=== PATIENT | male | born 1950 | race Caucasian/White ===

== ENCOUNTER 2016-08-22 16:25 | Emergency (ER) ==
[2016-08-22 17:01] LABS: MANUAL DIFF NEEDED? NO; URINE CULTURE NEEDED? NO; URINE MICRO REVIEW NEEDED? NO; URINE SOURCE CLEAN CATCH
--- NOTE | 2016-08-22 17:03 | PROVIDER DOCUMENTATION ---
HPI-General Adult - General Source: patient, family - History of Present Illness -Gen Adult Nature of Presenting Problems: Pt is 65 y/o M presents to the ED with request for psych evaluation from doctor. Pt's family states Pt was admitted to [place] for psych and was d/c after three days. Pt's family states Pt should have not been d/c. Pt's family states Pt has become worse. Location of Pain/Injury: reports: none Pain Radiation: reports: no radiation Quality of Pain: reports: none Onset/Duration: reports: unsure Timing: reports: still present Context/Activities at Onset: reports: light activity Modifying Factors: improves with: nothing Associated Symptoms: reports: denies symptoms Similar Symptoms Previously?: Yes Recently seen or treated by another doctor?: No <Lita Miranda - Last Filed: 08/22/16 16:58> <Jose Nagy - Last Filed: 08/22/16 21:21> - General Chief Complaint: Psych Stated Complaint: PSYCH Time Seen by Provider: 08/22/16 16:32 Allergies/Adverse Reactions: Patient Allergies Allergy/AdvReac Type Severity Reaction Status Date / Time No Known Allergies Allergy Verified 08/22/16 19:31 Home Medications: Home Medication List Medication Instructions Recorded Confirmed Last Taken Type Acetaminophen [Tylenol Extra 500 mg PO TID PRN PRN 08/22/16 08/22/16 Unknown History Strength] Aspirin EC 81 mg PO QAM 08/22/16 08/22/16 08/22/16 07:00 History Diphenhydramine [Benadryl] 25 mg PO Q4H PRN PRN 08/22/16 08/22/16 Unknown History Fluoxetine HCl [Prozac] 20 mg PO QAM 08/22/16 08/22/16 08/22/16 07:00 History Guaifenesin/D-Methorphan Hb/PE 10 ml PO Q4H PRN PRN 08/22/16 08/22/16 Unknown History [Tussin Cf Cough & Cold Liquid] Hydrocodone/Acetaminophen [[place] 1 each PO Q4H PRN PRN 08/22/16 08/22/16 Unknown History 10-325 Tablet] Loperamide HCl [Loperamide] 4 mg PO PRN PRN 08/22/16 08/22/16 Unknown History Lorazepam [Ativan] 0.5 mg PO DAILY PRN PRN 08/22/16 08/22/16 08/21/16 History Lorazepam [Ativan] 0.5 mg PO TID 08/22/16 08/22/16 08/22/16 07:00 History Magnesium Hydroxide [Milk of 30 ml PO DAILY PRN 08/22/16 08/22/16 Unknown History Magnesia] Magnesium Hydroxide/Al Hydrox 10 ml PO Q2H PRN PRN 08/22/16 08/22/16 Unknown History [Mylanta Liquid] Melatonin 1 mg PO QHS 08/22/16 08/22/16 08/21/16 21:00 History Ondansetron HCl [Zofran] 4 mg PO Q4H PRN PRN 08/22/16 08/22/16 Unknown History Ondansetron HCl [Zofran] 4 mg PO Q4H PRN PRN 08/22/16 08/22/16 Unknown History Pantoprazole Sodium [Protonix] 40 mg PO QAM 08/22/16 08/22/16 08/22/16 06:30 History Pseudoephedrine HCl 60 mg PO Q4H PRN PRN 08/22/16 08/22/16 Unknown History Quetiapine Fumarate [Seroquel] 200 mg PO QHS 08/22/16 08/22/16 08/21/16 21:00 History Tamsulosin [Flomax] 0.4 mg PO QAM 08/22/16 08/22/16 08/22/16 07:00 History Triprolidine/Pseudoephedrine 1 each PO Q4H PRN PRN 08/22/16 08/22/16 Unknown History [Aprodine Tablet] Vit C/Vit E Acetate/Lutein/Min 1 each PO QAM 08/22/16 08/22/16 08/22/16 07:00 History [Ocuvite Lutein Capsule] Vitamin B Complex 1 each PO HS 08/22/16 08/22/16 08/21/16 21:00 History Review of Systems - Adult - REVIEW OF SYSTEMS - ADULT Constitutional: reports: no symptoms reported Eyes: reports: no symptoms reported Ears, Nose, Mouth & Throat: reports: no symptoms reported Cardiovascular: reports: irregular heart rate (tachy). denies: chest pain, heart murmur Respiratory: reports: no symptoms reported Gastrointestinal: reports: no symptoms reported Genitourinary: reports: no symptoms reported Musculoskeletal: reports: no symptoms reported Integumentary: reports: no symptoms reported Neurological: reports: no symptoms reported Psychiatric: denies: anxiety, panic attacks, suicidal thoughts Endocrine: reports: no symptoms reported Hematologic/Lymphatic: reports: no symptoms reported Allergic/Immunologic: reports: no symptoms reported All Other Systems: Reviewed and Negative <Lita Miranda - Last Filed: 08/22/16 16:58> Past History - Adult - PAST MEDICAL HISTORY-ADULT Review of Records: reports: Nursing Assessment Review, Medications Reviewed, Social history reviewed & non-contributory. Major Childhood Illnesses: reports: denies history Cardiovascular: reports: denies history Respiratory: reports: denies history Gastrointestinal: reports: denies history Obstetrical/Gynecological: reports: denies history Genitourinary: reports: denies history Musculoskeletal: reports: denies history Neurological: reports: denies history Endocrine/Immune: reports: denies history Other Conditions: reports: denies history - IMMUNIZATION STATUS Childhood Immunizations: See Nurse Assessment Flu Vaccine: See Nurse Assessment - FAMILY HISTORY Family History: reviewed, not pertinent - SOCIAL HISTORY Smoking: denies Substance Use: denies Living Situation: family <RubenLita - Last Filed: 08/22/16 16:58> Physical Exam-General - PHYSICAL EXAM-ADULT Initial Vital Signs Reviewed: Yes - CONSTITUTIONAL General Appearance: appears well, no apparent distress, anxious - EYES Eyes: PERRL/EOMI, pink conjunctivae, fundi clear, no AV nicking - HEAD, EARS, NOSE, MOUTH & THROAT HENMT: normocephalic/atraumatic, moist mucous membranes, normal ENT inspection, TMs normal, pharynx normal - NECK Neck: non-tender, full range of motion, supple, normal inspection - RESPIRATORY Respiratory: chest non-tender, lungs clear, normal breath sounds, no pleuratic chest pain, no respiratory distress, no accessory muscle use - CARDIOVASCULAR Cardiovascular: normal peripheral pulses, no edema, no gallop, no JVD, no murmur , tachycardia - GASTROINTESTINAL (ABDOMEN) Abdominal Exam: normal bowel sounds, non tender, soft, no organomegaly, no pulsatile mass - LYMPHATIC Lymphatic: no adenopathy - MUSCULOSKELETAL Back Exam: normal inspection, no CVA tenderness, no vertebral tenderness Extremity: normal range of motion, non-tender, normal gait, normal inspection, no pedal edema, no calf tenderness, normal capillary refill, pelvis stable - SKIN Integumentary: normal color, normal turgor, warm/dry - NEUROLOGIC Neurologic: grossly normal - PSYCHIATRIC Psych/Mental Status: oriented x 3, anxious <Trina Mirandaomi - Last Filed: 08/22/16 16:58> Progress - PLAN OF CARE/RESULTS Progress/Plan/Lab Results: Pt. was accepted by Dr. Calvo at [facility]. Discussed results and plan of care with patient and family and both agree with plan and verbalizes understanding. Vital Signs Temp Pulse Resp BP Pulse Ox 08/22/16 16:35 98.2 F 105 H 18 128/95 100 No Known Allergies Allergy (Verified 08/22/16 19:31) Acetaminophen [Tylenol Extra Strength] 500 mg PO TID PRN PRN 08/22/16 Aspirin EC 81 mg PO QAM 08/22/16 Diphenhydramine [Benadryl] 25 mg PO Q4H PRN PRN 08/22/16 Fluoxetine HCl [Prozac] 20 mg PO QAM 08/22/16 Guaifenesin/D-Methorphan Hb/PE [[place]ussin Cf Cough & Cold Liquid] 10 ml PO Q4H PRN PRN 08/22/16 Hydrocodone/Acetaminophen [[place] 10-325 Tablet] 1 each PO Q4H PRN PRN 08/22/16 Loperamide HCl [Loperamide] 4 mg PO PRN PRN 08/22/16 Lorazepam [Ativan] 0.5 mg PO DAILY PRN PRN 08/22/16 Lorazepam [Ativan] 0.5 mg PO TID 08/22/16 Magnesium Hydroxide [Milk of Magnesia] 30 ml PO DAILY PRN 08/22/16 Magnesium Hydroxide/Al Hydrox [Mylanta Liquid] 10 ml PO Q2H PRN PRN 08/22/16 Melatonin 1 mg PO QHS 08/22/16 Ondansetron HCl [Zofran] 4 mg PO Q4H PRN PRN 08/22/16 Ondansetron HCl [Zofran] 4 mg PO Q4H PRN PRN 08/22/16 Pantoprazole Sodium [Protonix] 40 mg PO QAM 08/22/16 Pseudoephedrine HCl 60 mg PO Q4H PRN PRN 08/22/16 Quetiapine Fumarate [Seroquel] 200 mg PO QHS 08/22/16 Tamsulosin [Flomax] 0.4 mg PO QAM 08/22/16 Triprolidine/Pseudoephedrine [Aprodine Tablet] 1 each PO Q4H PRN PRN 08/22/16 Vit C/Vit E Acetate/Lutein/Min [Ocuvite Lutein Capsule] 1 each PO QAM 08/22/16 Vitamin B Complex 1 each PO HS 08/22/16 I&O 08/21/16 08/22/16 08/23/16 06:59 06:59 06:59 Output Total 40 Balance -40 Laboratory 08/22/16 08/22/16 08/22/16 16:53 16:53 16:53 WBC RBC Hgb Hct MCV MCH MCHC RDW Std Deviation Plt Count MPV Immature Gran % (Auto) Neut % (Auto) Lymph % (Auto) [place] % (Auto) Eos % (Auto) Baso % (Auto) Immature Gran # (Auto) Neut # (Auto) Lymph # (Auto) [place] # (Auto) Eos # (Auto) Baso # (Auto) Sodium Potassium Chloride Carbon Dioxide Anion Gap BUN Creatinine Estimated GFR/1.73 m2 BUN/Creatinine Ratio Glucose Calculated Osmolality Calcium Magnesium Total Bilirubin AST ALT Alkaline Phosphatase Total Protein Albumin Globulin Albumin/Globulin Ratio Vitamin B12 Folate TSH Free T4 Urine Source CLEAN CATCH Urine Color YELLOW Urine Turbidity CLEAR Urine pH 7.5 Ur Specific [place] 1.028 Urine Protein TRACE A Ur Glucose (Stick) NEGATIVE Ur Ketones (Stick) 10 A Urine Blood NEGATIVE Urine Nitrite NEGATIVE Urine Bilirubin NEGATIVE Urobilinogen Dipstick 8 A Urine Leukocytes NEGATIVE Urine WBC (Auto) <10 Urine RBC (Auto) <10 U Epithel Cells (Auto) <10 Urine Bacteria (Auto) NEGATIVE Urine Opiates Screen NONE DETECTED Ur Oxycodone Screen NONE DETECTED Ur Methadone, Qual NONE DETECTED Ur Barbiturates Screen NONE DETECTED Ur Phencyclidine Scrn NONE DETECTED Ur Amphetamines Screen NONE DETECTED U Benzodiazepines Scrn NONE DETECTED Urine Cocaine Screen NONE DETECTED U Cannabinoids Screen NONE DETECTED RPR NON-REACTIVE 08/22/16 08/22/16 08/22/16 16:53 16:53 16:53 WBC RBC Hgb Hct MCV MCH MCHC RDW Std Deviation Plt Count MPV Immature Gran % (Auto) Neut % (Auto) Lymph % (Auto) [place] % (Auto) Eos % (Auto) Baso % (Auto) Immature Gran # (Auto) Neut # (Auto) Lymph # (Auto) [place] # (Auto) Eos # (Auto) Baso # (Auto) Sodium 141 Potassium 3.7 Chloride 106 Carbon Dioxide 19 L Anion Gap 16 BUN 18 Creatinine 0.9 Estimated GFR/1.73 m2 > 60 BUN/Creatinine Ratio 20 Glucose 89 Calculated Osmolality 283 Calcium 9.5 Magnesium Total Bilirubin 1.62 H AST 18 ALT 21 Alkaline Phosphatase 84 Total Protein 7.6 Albumin 4.3 Globulin 3.3 Albumin/Globulin Ratio 1.3 Vitamin B12 483 Folate 21.3 TSH 2.82 Free T4 1.44 Urine Source Urine Color Urine Turbidity Urine pH Ur Specific [place] Urine Protein Ur Glucose (Stick) Ur Ketones (Stick) Urine Blood Urine Nitrite Urine Bilirubin Urobilinogen Dipstick Urine Leukocytes Urine WBC (Auto) Urine RBC (Auto) U Epithel Cells (Auto) Urine Bacteria (Auto) Urine Opiates Screen Ur Oxycodone Screen Ur Methadone, Qual Ur Barbiturates Screen Ur Phencyclidine Scrn Ur Amphetamines Screen U Benzodiazepines Scrn Urine Cocaine Screen U Cannabinoids Screen RPR 08/22/16 08/22/16 16:53 16:53 WBC 11.30 H RBC 5.03 Hgb 16.3 Hct 46.5 MCV 92.4 MCH 32.4 H MCHC 35.1 RDW Std Deviation 14.1 Plt Count 277 MPV 8.5 Immature Gran % (Auto) 0.6 H Neut % (Auto) 70.6 Lymph % (Auto) 16.9 L [place] % (Auto) 11.8 H Eos % (Auto) 0.0 Baso % (Auto) 0.1 Immature Gran # (Auto) 0.07 H Neut # (Auto) 7.98 H Lymph # (Auto) 1.91 [place] # (Auto) 1.33 H Eos # (Auto) 0.00 Baso # (Auto) 0.01 Sodium Potassium Chloride Carbon Dioxide Anion Gap BUN Creatinine Estimated GFR/1.73 m2 BUN/Creatinine Ratio Glucose Calculated Osmolality Calcium Magnesium 1.9 Total Bilirubin AST ALT Alkaline Phosphatase Total Protein Albumin Globulin Albumin/Globulin Ratio Vitamin B12 Folate TSH Free T4 Urine Source Urine Color Urine Turbidity Urine pH Ur Specific [place] Urine Protein Ur Glucose (Stick) Ur Ketones (Stick) Urine Blood Urine Nitrite Urine Bilirubin Urobilinogen Dipstick Urine Leukocytes Urine WBC (Auto) Urine RBC (Auto) U Epithel Cells (Auto) Urine Bacteria (Auto) Urine Opiates Screen Ur Oxycodone Screen Ur Methadone, Qual Ur Barbiturates Screen Ur Phencyclidine Scrn Ur Amphetamines Screen U Benzodiazepines Scrn Urine Cocaine Screen U Cannabinoids Screen RPR Orders Category Date Time Status CHEST-1 VIEW [RAD] Stat Exams 08/22/16 16:33 Taken HEAD W/O CONTRAST [CT] Stat Exams 08/22/16 16:33 Draft CBC WITH ELECTRONIC DIFF [HEME] Stat Lab 08/22/16 16:53 Completed COMPREHENSIVE METABOLIC PANEL [CHEM] Stat Lab 08/22/16 16:53 Completed FOLATE Stat Lab 08/22/16 16:53 Completed FREE T4 Stat Lab 08/22/16 16:53 Completed MAGNESIUM [CHEM] Stat Lab 08/22/16 16:53 Completed RPR [SERO] Stat Lab 08/22/16 16:53 Completed TSH Stat Lab 08/22/16 16:53 Completed URINALYSIS W/POSS RFLX CULT [URINALYSIS] Stat Lab 08/22/16 16:53 Completed URINE DRUG SCREEN Stat Lab 08/22/16 16:53 Completed VITAMIN B12 Stat Lab 08/22/16 16:53 Completed EKG [EKG] Stat Ther 08/22/16 16:33 Ordered Laboratory Tests 08/22/16 08/22/16 08/22/16 16:53 16:53 16:53 WBC 11.30 H RBC 5.03 Hgb 16.3 Hct 46.5 MCV 92.4 MCH 32.4 H MCHC 35.1 RDW Std Deviation 14.1 Plt Count 277 MPV 8.5 Immature Gran % (Auto) 0.6 H Neut % (Auto) 70.6 Lymph % (Auto) 16.9 L [place] % (Auto) 11.8 H Eos % (Auto) 0.0 Baso % (Auto) 0.1 Immature Gran # (Auto) 0.07 H Neut # (Auto) 7.98 H Lymph # (Auto) 1.91 [place] # (Auto) 1.33 H Eos # (Auto) 0.00 Baso # (Auto) 0.01 Sodium 141 Potassium 3.7 Chloride 106 Carbon Dioxide 19 L Anion Gap 16 BUN 18 Creatinine 0.9 Estimated GFR/1.73 m2 > 60 BUN/Creatinine Ratio 20 Glucose 89 Calculated Osmolality 283 Calcium 9.5 Magnesium 1.9 Total Bilirubin 1.62 H AST 18 ALT 21 Alkaline Phosphatase 84 Total Protein 7.6 Albumin 4.3 Globulin 3.3 Albumin/Globulin Ratio 1.3 Vitamin B12 Folate TSH Free T4 Urine Source Urine Color Urine Turbidity Urine pH Ur Specific [place] Urine Protein Ur Glucose (Stick) Ur Ketones (Stick) Urine Blood Urine Nitrite Urine Bilirubin Urobilinogen Dipstick Urine Leukocytes Urine WBC (Auto) Urine RBC (Auto) U Epithel Cells (Auto) Urine Bacteria (Auto) Urine Opiates Screen Ur Oxycodone Screen Ur Methadone, Qual Ur Barbiturates Screen Ur Phencyclidine Scrn Ur Amphetamines Screen U Benzodiazepines Scrn Urine Cocaine Screen U Cannabinoids Screen RPR 08/22/16 08/22/16 08/22/16 16:53 16:53 16:53 WBC RBC Hgb Hct MCV MCH MCHC RDW Std Deviation Plt Count MPV Immature Gran % (Auto) Neut % (Auto) Lymph % (Auto) [place] % (Auto) Eos % (Auto) Baso % (Auto) Immature Gran # (Auto) Neut # (Auto) Lymph # (Auto) [place] # (Auto) Eos # (Auto) Baso # (Auto) Sodium Potassium Chloride Carbon Dioxide Anion Gap BUN Creatinine Estimated GFR/1.73 m2 BUN/Creatinine Ratio Glucose Calculated Osmolality Calcium Magnesium Total Bilirubin AST ALT Alkaline Phosphatase Total Protein Albumin Globulin Albumin/Globulin Ratio Vitamin B12 483 Folate 21.3 TSH 2.82 Free T4 1.44 Urine Source Urine Color Urine Turbidity Urine pH Ur Specific [place] Urine Protein Ur Glucose (Stick) Ur Ketones (Stick) Urine Blood Urine Nitrite Urine Bilirubin Urobilinogen Dipstick Urine Leukocytes Urine WBC (Auto) Urine RBC (Auto) U Epithel Cells (Auto) Urine Bacteria (Auto) Urine Opiates Screen Ur Oxycodone Screen Ur Methadone, Qual Ur Barbiturates Screen Ur Phencyclidine Scrn Ur Amphetamines Screen U Benzodiazepines Scrn Urine Cocaine Screen U Cannabinoids Screen RPR NON-REACTIVE 08/22/16 08/22/16 16:53 16:53 WBC RBC Hgb Hct MCV MCH MCHC RDW Std Deviation Plt Count MPV Immature Gran % (Auto) Neut % (Auto) Lymph % (Auto) [place] % (Auto) Eos % (Auto) Baso % (Auto) Immature Gran # (Auto) Neut # (Auto) Lymph # (Auto) [place] # (Auto) Eos # (Auto) Baso # (Auto) Sodium Potassium Chloride Carbon Dioxide Anion Gap BUN Creatinine Estimated GFR/1.73 m2 BUN/Creatinine Ratio Glucose Calculated Osmolality Calcium Magnesium Total Bilirubin AST ALT Alkaline Phosphatase Total Protein Albumin Globulin Albumin/Globulin Ratio Vitamin B12 Folate TSH Free T4 Urine Source CLEAN CATCH Urine Color YELLOW Urine Turbidity CLEAR Urine pH 7.5 Ur Specific [place] 1.028 Urine Protein TRACE A Ur Glucose (Stick) NEGATIVE Ur Ketones (Stick) 10 A Urine Blood NEGATIVE Urine Nitrite NEGATIVE Urine Bilirubin NEGATIVE Urobilinogen Dipstick 8 A Urine Leukocytes NEGATIVE Urine WBC (Auto) <10 Urine RBC (Auto) <10 U Epithel Cells (Auto) <10 Urine Bacteria (Auto) NEGATIVE Urine Opiates Screen NONE DETECTED Ur Oxycodone Screen NONE DETECTED Ur Methadone, Qual NONE DETECTED Ur Barbiturates Screen NONE DETECTED Ur Phencyclidine Scrn NONE DETECTED Ur Amphetamines Screen NONE DETECTED U Benzodiazepines Scrn NONE DETECTED Urine Cocaine Screen NONE DETECTED U Cannabinoids Screen NONE DETECTED RPR - XRAY 1 XRAY Study: Chest XRAY Interpretation: PRASHANTH Steen) - CT/MRI 1 CT Study: Head CT Results: No blood, negative exam ([place]) <Jose Nagy - Last Filed: 08/22/16 21:21> Departure <Lita Miranda - Last Filed: 08/22/16 16:58> - Departure Time of Disposition Order: 21:19 Certified Medical Emergency: Emergent <Jose Nagy - Last Filed: 08/22/16 21:21> - Departure DIAGNOSIS: Dementia Qualifiers: Dementia type: unspecified type Dementia behavioral disturbance: with behavioral disturbance Qualified Code(s): F03.91 - Unspecified dementia with behavioral disturbance Disposition: [facility]CHIATRIC HOSPITAL/[facility] Condition: Stable Attestation - Scribe Verification/Attestation Scribe:: Lita Miranda Acting as Scribe for:: Jose Nagy Scribe documention review:: This chart was documented by a scribe and accurately reflects the service the provider performed and the decisions made by the provider. <Lita Miranda - Last Filed: 08/22/16 16:58> - Physician/ MARIBELL Attestation Patient care was provided by Advanced Practice Provider:: Yes Advanced Practice Provider:: Jose Nagy Advanced Practice Provider documentation review:: The Mid-level provider documentation, treatment plan and medical decision making was reviewed by the physician who agrees with all treatment and medical decision making by the MLP. <Jose Nagy - Last Filed: 08/22/16 21:21> Physician Attestation - Physician Attestation I, the provider, attest to the following statement:: Jose Nagy Physician documentation Attestation:: This documentation recorded by the scribe accurately reflects the service I personally performed and the decisions made by me. <Jose Nagy - Last Filed: 08/22/16 21:21>
[2016-08-22 17:10] LABS: BASO% 0.1 % (0.0-0.8); HEMATOCRIT 46.5 % (42.0-52.0); HEMOGLOBIN 16.3 g/dL (14.0-18.0); IMM GRAN# 0.07 X1000 (0.0-0.04); IMM GRAN% 0.6 % (0.0-0.5); LYMPH# 1.91 X1000 (1.2-3.4); LYMPH% 16.9 % (20.5-51.1); MCH 32.4 PG (27-31); MCHC 35.1 g/dL (33-37); MCV 92.4 FL (81-99); MONO# 1.33 X1000 (0.11-0.59); MONO% 11.8 % (1.7-9.3); MPV 8.5 FL (7.4-10.4); NEUT% 70.6 % (42.2-75.2); PLT 277 X1000 (130-400); RBC 5.03 XMIL (4.7-6.1)
[2016-08-22 17:14] LABS: BILIRUBIN URINE NEGATIVE (NEGATIVE); BLOOD URINE NEGATIVE (NEGATIVE); COLOR YELLOW; GLUCOSE URINE NEGATIVE (NEGATIVE); LEUKOCYTES URINE NEGATIVE (NEGATIVE); NITRITE URINE NEGATIVE (NEGATIVE); PH URINE 7.5; PROTEIN URINE TRACE mg/dL (NEGATIVE); SP GRAVITY URINE 1.028; TURBIDITY URINE CLEAR (CLEAR); UROBILINOGEN URINE 8 mg/dL (NORMAL)
[2016-08-22 17:15] LABS: UR EPITHELIAL CELLS <10 /HPF (<10); URINE BACTERIA NEGATIVE /HPF; URINE RBC <10 /HPF (<10); URINE WBC <10 /HPF (<10)
[2016-08-22 17:39] LABS: AGAP 16; ALBUMIN 4.3 g/dL (3.5-5.0); ALKALINE PHOSPHATASE 84 U/L (32-122); BUN 18 mg/dL (8-22); CALCIUM 9.5 mg/dL (8.8-10.2); CHLORIDE 106 mmol/L (98-107); COSMO 283; GOT 18 U/L (10-34); GPT 21 U/L (10-44); POTASSIUM 3.7 mmol/L (3.5-5.1); SODIUM 141 mmol/L (136-145); TCO2 19 mmol/L (25-35); TOTAL BILIRUBIN 1.62 mg/dL (0.20-1.00); TOTAL PROTEIN 7.6 g/dL (6.3-8.3)
[2016-08-22 17:51] LABS: UR AMPHETAMINES QUAL NONE DETECTED (NONE DETECT); UR BARBITUATES QUAL NONE DETECTED (NONE DETECT); UR BENZODIAZEPIN QUAL NONE DETECTED (NONE DETECT); UR CANNABINOIDS QUAL NONE DETECTED (NONE DETECT); UR COCAINE QUAL NONE DETECTED (NONE DETECT); UR METHADONE QUAL NONE DETECTED (NONE DETECT); UR OPIATES QUAL NONE DETECTED (NONE DETECT); UR OXYCODONE QUAL NONE DETECTED (NONE DETECT); UR PCP QUAL NONE DETECTED (NONE DETECT)
[2016-08-22 17:59] LABS: FREE T4 1.44 ng/dL (0.93-1.70)
--- NOTE | 2016-08-22 18:01 | Diag Imaging Result Document ---
PROCEDURE NAME: HEAD W/O CONTRAST - 08/22/2016 STUDY: CT brain without contrast. PROTOCOL: Dose reduction protocol. No parenchymal hemorrhage. No epidural or subdural hematoma. No subarachnoid hemorrhage. No hydrocephalus. No mass identified on this noncontrasted exam. No sinus opacification. No air fluid levels. IMPRESSION: No hemorrhage. Negative brain CT without contrast. A preliminary report was given at 5:38 p.m.
[2016-08-22 21:36] VITALS: BP 153/92
--- NOTE | 2016-08-23 08:19 | Diag Imaging Result Document ---
PROCEDURE NAME: CHEST-1 VIEW - 08/22/2016 SINGLE FRONTAL RADIOGRAPH OF THE CHEST: COMPARISON: None available. FINDINGS: The lungs are grossly clear. There is no discrete pleural fluid collection or evidence of pneumothorax. The cardiomediastinal silhouette and upper airway are grossly unremarkable. IMPRESSION: No evidence of acute chest pathology.
--- NOTE | 2016-08-23 10:17 | EKG Report ---
Test Performed on : 08/22/2016 8:58:05 PM Test Reason : [facility] court medical clearance Blood Pressure : / mmHG Vent. Rate : 101 BPM Atrial Rate : 101 BPM P-R Int : 146 ms QRS Dur : 082 ms QT Int : 358 ms P-R-T Axes : 071 -44 048 degrees QTc Int : 464 ms Sinus tachycardia. Left axis deviation Abnormal ECG No previous ECGs available Unconfirmed Result
== END 2016-08-22 21:36 ==
LOC: ED 16:25
DX: F03.91 Unspecified dementia, unspecified severity, with behavioral disturbance (principal); R00.0 Tachycardia, unspecified; Z79.82 Long term (current) use of aspirin; Z79.899 Other long term (current) drug therapy
CPT/HCPCS: 70450; 71010; 80053; 81001; 82607; 82746; 83735; 84439; 84443; 85025; 86592; 93005; G0480; 80324; 80345; 80346; 80349; 80353; 80358; 80361; 80365; 83992